=== PATIENT | male | born 1980 | race Caucasian/White ===

== ENCOUNTER 2016-10-06 21:33 | Emergency (ER) | payer OTHER ==
[2016-10-06 21:54] VITALS: BP 135/86
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
== END 2016-10-06 22:25 | disposition home or self-care (01) ==
LOC: ED 21:33
DX: R60.9 Edema, unspecified (principal)
CPT/HCPCS: 99283